=== PATIENT | male | born 1960 | race Two or more races ===

== ENCOUNTER 2018-03-02 09:36 | Emergency (ER) | payer MEDICAID ==
[~2018-03-02] VITALS: Ht 157.5 cm; Wt 54.4 kg
[2018-03-02] MEDS ORDERED: IBUPROFEN600 MG ORAL ×2 (09:52→13:15)
[2018-03-02] MEDS ORDERED: PROAIR HFA8.5 GM INH (09:52)
[2018-03-02] MEDS ORDERED: SYMBICORT 16010.2 G1 IH (09:52)
[2018-03-02] MEDS ORDERED: SUDOGEST60 MG PO (09:52)
[2018-03-02 10:07] VITALS: BP 100/62
[2018-03-02] MEDS ORDERED: Albuterol ud Inhalation HHN ONE (10:30)
[2018-03-02] MEDS ORDERED: Morphine Sulfate 4mg/ml Inj IVP ONE (10:30)
[2018-03-02] MEDS ORDERED: Aspirin Baby 81mg ORAL ONE (10:30)
--- NOTE | 2018-03-02 10:32 | Emergency Room Report ---
History of Present Illness General Chief Complaint: General Complaint Source: Patient, Family Member Present Illness HPI 57-year-old male presents with cough for many weeks, productive of yellow sputum Also complains of myalgias for many weeks, seen by his PMD Dr. Lopez Treated with 2 injections had partial temporary relief Now still with symptoms, including chills myalgias persistent cough, posttussive emesis No active chest pain, but pain all over, constant and achy Allergies: Coded Allergies: No Known Allergies (Unverified , 03/02/18) Patient History Past Medical History: see triage record Reviewed Nursing Documentation: PMH: Agreed; PSxH: Agreed Nursing Documentation-PMH Past Medical History: No Stated History Review of Systems All Other Systems: negative except mentioned in HPI Physical Exam Vital Signs Date Time Temp Pulse Resp B/P (MAP) Pulse Ox O2 Delivery O2 Flow Rate FiO2 03/02/18 09:46 99.9 113 20 120/61 91 Room Air 99.9 Sp02 EP Interpretation: reviewed, abnormal - slightly hypoxic General Appearance: no apparent distress, alert, non-toxic Head: normocephalic Eyes: bilateral eye normal inspection, bilateral eye PERRL, bilateral eye EOMI ENT: normal ENT inspection, hearing grossly normal, normal pharynx, no angioedema, normal voice, moist mucus membranes Neck: normal inspection, full range of motion, supple, supple/symm/no masses Respiratory: chest non-tender, lungs clear, normal breath sounds, rhonchi - intermittent scant rhonchi at bases, chest symmetrical, palpation of chest normal Cardiovascular #1: normal peripheral pulses, regular rate, rhythm, tachycardia Cardiovascular #2: 2+ radial (R), 2+ radial (L) Gastrointestinal: normal inspection, non tender, soft, no mass, no guarding, no rebound Rectal: deferred Genitourinary: normal inspection, no CVA tenderness Musculoskeletal: back normal, gait/station normal, normal range of motion, non- tender, no calf tenderness Neurologic: alert, responsive, epic cupid specialists III-XII nml as tested, motor strength/tone normal, sensory intact, speech normal Psychiatric: judgement/insight normal, memory normal, mood/affect normal, no suicidal/homicidal ideation Skin: normal color, no rash, warm/dry, normal turgor Lymphatic: no adenopathy Medical Decision Making Diagnostic Impression: Primary Impression: Pneumonia ER Course Patient with likely pneumonia, given cough, sputum production, low grade fever, intermittent rhonchi O2 sat of low 90's but no respiratory distress Given analgesics adn neb rx CT, labs, c/w likely pna vs. neoplasm vs. chronic inflammation; explained to patient's family, will dc with abx, f/u with PMD for repeat eval and need for f/ u if abnormalities persist. EKG Diagnostic Results EKG Time: 10:30 EP Interpretation: no st-t changes, no twi, +LVH Rate: tachycardiac Rhythm: NSR ST Segments: no acute changes ASA given to the pt in ED: Yes Rhythm Strip Diag. Results Rhythm Strip Time: 10:37 EP Interpretation: yes Rate: 102 Rhythm: NSR, no PVC's, no ectopy CT/MRI/US Diagnostic Results CT/MRI/US Diagnostic Results : Imaging Test Ordered: ct angio chest Reevaluation Time: 13:08 Last Vital Signs Date Time Temp Pulse Resp B/P (MAP) Pulse Ox O2 Delivery O2 Flow Rate FiO2 03/02/18 10:07 108 19 100/62 96 Room Air 03/02/18 09:46 99.9 99.9 Status: improved Reevaluation Impression Pt well-appearing, sats on RA now 96, will dc home with ABX, ct chest with irregular parenchymal infiltrates c/w PNA vs. chronic inflammatory vs. neoplastic dz. Possibility of cancer explained to patient and importance of f/ u with Dr. Lopez, his PMD for re-evaluation after treatment for pneumonia. Given Levaquin, ibuprofen, f/u with PMD. Dx pneumonia. Disposition: HOME, SELF-CARE CHELLE DUBON M.D Mar 02, 2018 10:32
[2018-03-02 10:54] LABS: HEMATOCRIT 43.5 % (42.0-52.0); HEMOGLOBIN 14.5 G/DL (14.2-18.0); MEAN CORPUSCULAR VOLUME 90 FL (80-99); PLATELET COUNT 198 K/UL (150-450); RED BLOOD COUNT 4.86 M/UL (4.70-6.10); RED CELL DISTRIBUTION WIDTH 12.1 % (11.6-14.8); WHITE BLOOD COUNT 15.2 K/UL (4.8-10.8)
[2018-03-02 11:07] LABS: ANION GAP 5 mmol/L (5-15); BLOOD UREA NITROGEN 10 mg/dL (7-18); CALCIUM 9.3 MG/DL (8.5-10.1); CARBON DIOXIDE 30 MMOL/L (21-32); CHLORIDE 102 MMOL/L (98-107); CREATININE 0.9 MG/DL (0.55-1.30); POTASSIUM 3.8 MMOL/L (3.5-5.1); SODIUM 137 MMOL/L (136-145)
[2018-03-02 11:18] LABS: ALANINE AMINOTRANSFERASE 25 U/L (12-78); ALBUMIN 3.3 G/DL (3.4-5.0); ALBUMIN/GLOBULIN RATIO 0.7 (1.0-2.7); ALKALINE PHOSPHATASE 83 U/L (46-116); ASPARTATE AMINO TRANSFERASE 21 U/L (15-37); BILIRUBIN,TOTAL 0.7 MG/DL (0.2-1.0)
--- NOTE | 2018-03-02 12:51 | Diagnostic Imaging Report ---
ndication: Chest pain and cough Technique: IV administration nonionic contrast. Spiral acquisitions obtained from the lung bases to the lung apices. Multiplanar and 3-D reconstructions were generated. Total dose length product 605.95 mGycm. CTDIvol(s) 15.93 mGy. Dose reduction achieved using automated exposure control Comparison: none Findings: Opacification of the pulmonary arteries is suboptimal, and only large central pulmonary emboli can be excluded with any confidence. No definite thoracic aortic aneurysm or dissection. Normal caliber pulmonary arteries. No evidence of right ventricular dilatation. Reticular interstitial opacities as well as irregular parenchymal opacities are seen scattered throughout both lungs. Fairly extensive reticular and irregular parenchymal opacities are seen occupying much of the inferior left lower lobe. There is also bronchiectasis and bronchial wall thickening. There is right hilar lymphadenopathy. There are prominent mediastinal lymph nodes. No axillary or chest wall mass or adenopathy. Included upper upper abdominal anatomy is unremarkable Impression: Suboptimal pulmonary arterial opacification. This precludes exclusion of all but large vessel central pulmonary emboli. Extensive bilateral parenchymal disease, as described. Appearance is nonspecific, could indicate acute inflammatory process, chronic fibrotic change, or combination of both Right hilar and mediastinal borderline lymphadenopathy. This could be neoplastic or reactive. The CT scanner at [facility] is accredited by the [employer] and the scans are performed using protocols designed to limit radiation exposure to as low as reasonably achievable to attain images of sufficient resolution adequate for diagnostic evaluation.
[2018-03-02 13:02] VITALS: BP 107/47
[2018-03-02] MEDS ORDERED: LEVAQUIN750 MG ORAL (13:14)
[2018-03-02 13:51] VITALS: BP 107/47
--- NOTE | 2018-03-03 15:13 | Cardiology Report ---
APPROVED REPORT EKG Measurement Heart [id number] Sinus tachycardia Moderate voltage criteria for LVH, may be normal variant Borderline ECG
== END 2018-03-02 13:56 | disposition home or self-care (01) ==
LOC: EMR 10:40
DX: J18.9 Pneumonia, unspecified organism (principal)
CPT/HCPCS: 36415; 71275; 80053; 83880; 84484; 85007; 85025; 93005; 94640; 94664; 96361; 96374; 99284; J2270; Q9967